=== PATIENT | male | born 1980 | race Two or more races ===

== ENCOUNTER 2023-11-09 12:15 | Inpatient (IN) | payer OTHER ==
[2023-11-09] MEDS ORDERED: ZOLPIDEM TARTRATE 10 MG TABLET PO PRN ×2 (13:00→16:00)
[2023-11-09] MEDS ORDERED: MAGNESIUM HYDROXIDE 30 ML UDC PO PRN (16:00)
[2023-11-09] MEDS ORDERED: MAG HYDROX/AL HYDROX/SIMETH 30 ML UDC PO PRN (16:00)
[2023-11-09] MEDS ORDERED: IBUPROFEN 200 MG TABLET PO PRN (16:00)
[2023-11-09] MEDS ORDERED: ACETAMINOPHEN ES 500 MG TABLET PO PRN (16:00)
[2023-11-09] MEDS ORDERED: LORAZEPAM 1 MG TABLET FOR AGITATION PO PRN ×2 (16:00)
[2023-11-09 18:00] VITALS: BP 124/77; TEMP 98.8; O2SAT 98
[2023-11-09 20:00] VITALS: BP 117/69; TEMP 98.6; O2SAT 98
[2023-11-09 20:52] VITALS: BP 117/69; TEMP 98.6; O2SAT 98
[2023-11-09] MEDS: LATUDA 80 MG PO SCH (22:01)
[2023-11-10 08:28] VITALS: BP 107/73; TEMP 98.2; O2SAT 99
[2023-11-10 20:00] VITALS: BP 122/77; TEMP 97.9; O2SAT 100
[2023-11-10] MEDS: LATUDA 80 MG PO SCH (21:50)
[2023-11-11 08:00] VITALS: BP 131/91; TEMP 98.4; O2SAT 100
[2023-11-11 20:00] VITALS: BP 114/71; TEMP 98.6; O2SAT 98
[2023-11-12 07:30] VITALS: BP 96/64; TEMP 97.7; O2SAT 99
[2023-11-12 10:00] VITALS: BP 96/64; TEMP 97.7
[2023-11-12 20:00] VITALS: BP 123/81; TEMP 98.2; O2SAT 97
[2023-11-12] MEDS ORDERED: LATUDA 80 MG PO SCH (22:00)
[2023-11-12] MEDS: LATUDA 20 MG PO SCH (22:15)
[2023-11-13 08:00] VITALS: BP 129/90; TEMP 98.2; O2SAT 99
[2023-11-13 16:00] VITALS: BP 111/79; TEMP 99; O2SAT 99
[2023-11-13 20:00] VITALS: BP 110/74; TEMP 98.6; O2SAT 98
[2023-11-23] MEDS ORDERED: ZOLPIDEM TARTRATE 10 MG TABLET PO PRN (13:00)
[2023-11-23] MEDS ORDERED: LORAZEPAM 1 MG TABLET FOR AGITATION PO PRN (13:00)
[2023-11-24] MEDS ORDERED: INVEST MED CVL-231-2002 PO SCH (10:00)
[2023-11-30] MEDS ORDERED: LORAZEPAM 1 MG TABLET FOR AGITATION PO PRN (13:00)
[2023-11-30] MEDS ORDERED: ZOLPIDEM TARTRATE 10 MG TABLET PO PRN (13:00)
[2023-12-07] MEDS ORDERED: ZOLPIDEM TARTRATE 10 MG TABLET PO PRN (13:00)
[2023-12-07] MEDS ORDERED: LORAZEPAM 1 MG TABLET FOR AGITATION PO PRN (13:00)
[2023-12-14] MEDS ORDERED: ZOLPIDEM TARTRATE 10 MG TABLET PO PRN (13:00)
[2023-12-14] MEDS ORDERED: LORAZEPAM 1 MG TABLET FOR AGITATION PO PRN (13:00)
[2023-12-21] MEDS ORDERED: LORAZEPAM 1 MG TABLET FOR AGITATION PO PRN (13:00)
[2023-12-21] MEDS ORDERED: ZOLPIDEM TARTRATE 10 MG TABLET PO PRN (13:00)
[2023-12-28] MEDS ORDERED: LORAZEPAM 1 MG TABLET FOR AGITATION PO PRN (13:00)
[2023-12-28] MEDS ORDERED: ZOLPIDEM TARTRATE 10 MG TABLET PO PRN (13:00)
[2024-01-05] MEDS ORDERED: LORAZEPAM 1 MG TABLET FOR AGITATION PO PRN (13:00)
[2024-01-05] MEDS ORDERED: ZOLPIDEM TARTRATE 10 MG TABLET PO PRN (13:00)
== END 2023-11-14 10:55 | disposition home or self-care (01) | DRG 951 ==
LOC: MED 15:01
PROVIDERS: ADMIT Psychiatry & Neurology Psychiatry; ATTEND Psychiatry & Neurology Psychiatry
DX: Z00.6 Encounter for examination for normal comparison and control in clinical research program (principal); F20.0 Paranoid schizophrenia; Z81.8 Family history of other mental and behavioral disorders
CPT/HCPCS: G0378